=== PATIENT | female | born 1990 | race Caucasian/White ===

== ENCOUNTER 2019-10-14 08:57 | Emergency (ER) | payer MEDICAID ==
[~2019-10-14] VITALS: Ht 165.1 cm; Wt 63.6 kg
[~2019-10-14 08:57] MED LIST: CARB200T PO; CLON-527 PO; CLON-528 PO
[2019-10-14] MEDS ORDERED: haloperidol lactate 5mg/ml inj IM ONE (09:00)
[2019-10-14] MEDS ORDERED: LORazepam 2 mg/ml vial IM ONE (09:00)
[2019-10-14] MEDS ORDERED: diphenhydrAMINE 50 mg/ml inj IM ONE (09:00)
[2019-10-14 10:20] LABS: BASOPHILS % (AUTO) 0.5 % (0-1); EOSINOPHILS % (AUTO) 0.1 % (0-6); HEMATOCRIT 35.8 % (35.0-45.0); LYMPHOCYTES # (AUTO) 1.8 X10'3 (1.1-4.8); LYMPHOCYTES % (AUTO) 20.2 % (21-51); MEAN CORPUSCULAR HEMOGLOBIN 27.6 PG (27.0-31.0); MEAN CORPUSCULAR HGB CONC 33.5 g/dL (33.0-36.5); MEAN CORPUSCULAR VOLUME 82.4 FL (78-98); MONOCYTES # (AUTO) 0.9 X10'3 (0-0.9); MONOCYTES % (AUTO) 10.6 % (2-12); NEUTROPHILS % (AUTO) 68.6 % (42-75); PLATELET COUNT 205 X10'3 (140-440); RED BLOOD COUNT 4.34 X10'6 (4.20-5.60); WHITE BLOOD COUNT 8.8 X10'3 (4.5-11.0)
[2019-10-14 10:28] LABS: ALANINE AMINOTRANSFERASE 23 U/L (12-78); ALBUMIN/GLOBULIN RATIO 1.3 (1.1-1.5); ALKALINE PHOSPHATASE 67 IU/L (46-116); ANION GAP 13 (8-16); ASPARTATE AMINO TRANSFERASE 20 U/L (10-37); BILIRUBIN,TOTAL 0.6 MG/DL (0.1-1.0); BLOOD UREA NITROGEN 14 MG/DL (7-18); BUN/CREATININE RATIO 14.6 (6.6-38.0); CALCIUM 10.1 MG/DL (8.5-10.1); CHLORIDE 103 MMOL/L (99-107); CREATININE 0.96 MG/DL (0.40-0.90); GLUCOSE 102 MG/DL (70-104); POTASSIUM 3.6 MMOL/L (3.5-5.1); SODIUM 140 MMOL/L (135-145); TOTAL CARBON DIOXIDE 24.4 MMOL/L (24-32); TOTAL PROTEIN 8.8 G/DL (6.4-8.2); eGFR 70 ML/MIN
[2019-10-14 10:36] LABS: ETHANOL < 0.010 GM/DL (0.0-0.010)
[2019-10-14 12:59] LABS: URINE HCG NEGATIVE (NEG)
[2019-10-14 13:04] LABS: URINE AMPHETAMINE SCREEN NEGATIVE (Neg); URINE BARBITUATE SCREEN NEGATIVE (Neg); URINE BENZODIAZEPINES SCREEN NEGATIVE (Neg); URINE CANNABINOID SCREEN POSITIVE (Neg); URINE COCAINE SCREEN NEGATIVE (Neg); URINE METHADONE SCREEN NEGATIVE (Neg); URINE OPIATE SCREEN NEGATIVE (Neg); URINE PHENCYCLIDINE SCREEN NEGATIVE (Neg)
[2019-10-14 13:13] LABS: CLARITY,URINE CLOUDY (Clear); COLOR,URINE YELLOW (Yellow); GLUCOSE, URINE NEGATIVE (Neg); KETONES,URINE 15 mg/dl (Neg); LEUKOCYTE ESTERASE ,URINE NEGATIVE (Neg); NITRITES, URINE NEGATIVE (Neg); OCCULT BLOOD,URINE NEGATIVE (Neg); PH,URINE 5.5 (4.8-8.0); PROTEIN,URINE TRACE mg/dl (Neg); UROBILINOGEN,URINE 0.2 E.U/dL (0.2-1.0)
--- NOTE | 2019-10-14 13:19 | NUR ---
PT. GIVEN A SANDWICH. PT. TALKING TO HERSELF STATING SHE IS STARVING EVEN THOUGH SHE HAS A SANDWICH THAT IS OPEN AND JUICE.
[2019-10-14 13:20] LABS: UA COLLECTION TYPE URINAL
[2019-10-14 13:21] LABS: MUCUS STRANDS MANY /LPF (Neg); SQUAMOUS EPITHELIAL CELL,UR MANY /LPF (FEW)
[2019-10-14 13:22] LABS: BACTERIA,URINE 2+ /HPF (Neg); RBC,URINE 0-2 /HPF (0-2); WBC,URINE 0-4 /HPF (0-4)
--- NOTE | 2019-10-14 17:33 | NUR ---
PT MOVED FROM BED 15 TO BED 27 IN OVERFLOW, PT BROUGHT OVER VIA WHEELCHAIR BY BLAS TELLEZ/ELENO
--- NOTE | 2019-10-14 17:40 | NUR ---
PT UNABLE TO ANSWER QUESTIONS AT THIS TIME, PT IS NOT ABLE TO FORMULATE EVEN A SENTENCE, CALLED ESEQUIEL DYSON AT [facility] [phone] LEFT MESSAGE INFORMED PROVIDER TO CALL TO GIVE NAME AND DOSE OF MEDICATIONS SHE PRESCRIBES THE PT SO THAT WE CAN UPDATE PT MEDICATION RECORD
--- NOTE | 2019-10-14 18:37 | NUR ---
Patient awakens to voice, she looks startled. This marketing writer identified himself as an RN. The patient took my hand and held it, she then was reassured that she is in a safe place. Patient returned to sleep. Non verbal for now. Seizure pads will be placed as a precaution with three rails up.
--- NOTE | 2019-10-14 19:34 | NUR ---
Patient is sleeping on her left side. She self repositions.
[2019-10-14] MEDS ORDERED: clonazePAM 0.5mg tablet PO PRN ×2 (19:50→19:53)
--- NOTE | 2019-10-14 20:48 | NUR ---
Patient is sleeping on her left side. In direct observation from a tech sitting nearby.
--- NOTE | 2019-10-14 22:00 | NUR ---
Patient is sleeping quietly, supine in bed.
[2019-10-14] MEDS ORDERED: clonazePAM 0.5mg tablet PO ONE (23:25)
--- NOTE | 2019-10-14 23:35 | NUR ---
Patient is awake now. Minor agitation, she is eating her reheated dinner. Patient nods yes when asked about a seizure history. Patient has a tech sitting next to her bed.
--- NOTE | 2019-10-15 00:33 | NUR ---
Patient is sleeping on her left side. As a precaution patient has pads on three rails that are up. Probable seizure history. Yahaira is nom compliant on medications at this point.
--- NOTE | 2019-10-15 01:24 | NUR ---
Patient is sleeping on her left side, the bed isin a low fowlers position.
--- NOTE | 2019-10-15 02:31 | NUR ---
Patient sleeping quietly.
--- NOTE | 2019-10-15 03:45 | NUR ---
Patient remains sleeping in supine position. She repositions self in bed. Warm blankets supplied.
--- NOTE | 2019-10-15 04:52 | NUR ---
Patient is sleeping on her left side with her knees flexed.
--- NOTE | 2019-10-15 05:34 | NUR ---
Patient sat up for morning vital signs and went directly back to sleep, positioning herself on her left side in bed.
--- NOTE | 2019-10-15 06:55 | NUR ---
Patient awoke and tearful. Patient couldn't verbalized what she wanted but doesn't want to be here. RN explained where she was and what was going to happen today. Patient listened. Patient then got up slowly and went to the BR. Continue to monitor.
--- NOTE | 2019-10-15 09:10 | NUR ---
RN assisting patient in eating and drinking her juice. Patient is no speaking and eating very very slowly. Continue to monitor.
[2019-10-15] MEDS: carBAMazepine 100mg chewable tablet PO SCH ×2 (09:53→20:00)
--- NOTE | 2019-10-15 10:59 | NUR ---
Patient's boyfriend and father of patient's baby visiting patient along with the "[id number]." Boyfriend states patient stopped taking meds 1 year ago or more and was seen at [facility] and was sent from there. Boyfriend states she has Bi-polar d/o and possibly Schizophrenia. Patient was taking Tegretol but boyfriend does not know if she was on other meds. Patient calm and appears much more attentive to her family than to staff. Continue to monitor.
--- NOTE | 2019-10-15 12:58 | NUR ---
Patient acting bizarre. Patient is having a hard time formulating words. Patient sitting next to bedside table. Continue to monitor.
--- NOTE | 2019-10-15 16:13 | NUR ---
[phone], Palomo's phone number (boyfriend).
--- NOTE | 2019-10-15 16:17 | NUR ---
pt talking with boyfriend on phone
--- NOTE | 2019-10-15 16:21 | NUR ---
Patient speaking to boyfriend on the phone. Continue to monitor.
--- NOTE | 2019-10-15 18:35 | NUR ---
Assumed care of patient, pt. sitting up in bed staring at meal tray at this time. Encouraged pt. to eat dinner, she states, "I'm waiting." No s/s of distress, will continue to monitor.
--- NOTE | 2019-10-15 19:30 | NUR ---
Pt. continued to sit on edge of her bed staring at her tray, and this nurse had to set tray up and hand pt. utensils in order for her to begin eating. After feeding pt. a few bites, she did then take a few bites on her own, however she was only able to eat approximately 25-50% of the meal. Will endorse to AM shift and continue to monitor.
--- NOTE | 2019-10-15 20:30 | NUR ---
Attempted to complete 1:1 at bedside, pt. continues to present with thought blocking and requires an extended amount of time to respond to questions. She also presents with confusion and is A&O X2 (to name and place). She attempted to answer some questions by reading information off of her patient bracelet. Pt. denies S/I, H/I, and A/V/GRACE. However, pt. presents as possibly paranoid delusional and refuses to take scheduled HS medication Tegretol. When this medical underwriter questioned pt. regarding why she would not take medication she repeatedly stated, "I'm just waiting." She became tearful after talking on the phone earlier to her family and reported that she is waiting for them to come and take them home. Pt. also refuses to take PRN Clonazepam r/t anxiety. This medical underwriter continued to encourage pt. to take her medication so she can get better and be able to go home with her family, however she continued to refuse. Pt. states, "I'm tired." She is lying in bed with eyes closed at this time, no s/s of distress.
--- NOTE | 2019-10-15 22:16 | NUR ---
Received call from Juan Duffy regarding possible placement of patient. Will present to their provider and let us know.
--- NOTE | 2019-10-15 22:30 | NUR ---
Pt. appears to be sleeping at this time, laying on her rt. side, rr even and unlabored.
--- NOTE | 2019-10-16 00:30 | NUR ---
Pt. sitting up in bed at this time, nurse asked her if she needed to use the BR and she nodded "Yes" slightly. Assisted pt. to ambulate to the BR r/t generalized weakness. Pt. able to urinate, and this nurse then assisted her back to bed. Pt. laying in bed with eyes closed at this time. Will continue to monitor.
--- NOTE | 2019-10-16 02:17 | NUR ---
Pt. awake sitting up in bed staring at the wall at this time. Obtained orders from Dr. Morales for 10mg of Zyprexa and 25mg of Benadryl. Will continue to monitor.
[2019-10-16] MEDS ORDERED: diphenhydrAMINE 25mg capsule PO ONE (02:20)
[2019-10-16] MEDS ORDERED: OLANZapine 5mg rapidly disint. tablet PO ONE (02:20)
--- NOTE | 2019-10-16 02:45 | NUR ---
Pt. again refusing to take any medication even though education provided by this song writer that it will help her to sleep. She holds medication cup in her hand for a long time while verbally ageeing to take it, however will not put medication in her mouth. Pt. periodically spits in a water cup by her bed, new cup provided. Pt. encouraged by this song writer to lay down and try to sleep, she complies. Will continue to monitor.
--- NOTE | 2019-10-16 04:33 | NUR ---
Pt. asleep at this time, laying on her right side, rr even and unlabored.
--- NOTE | 2019-10-16 05:10 | NUR ---
Pt. up to use the BR, accompanied by staff r/t generalized weakness and confusion. Able to ambulate with assistance from staff back to bed. Will continue to monitor.
[2019-10-16 05:30] VITALS: BP 131/92
--- NOTE | 2019-10-16 05:55 | NUR ---
Pt. appears to be sleeping at this time, no s/s of distress. Will continue to monitor.
[2019-10-16] MEDS: carBAMazepine 100mg chewable tablet PO SCH (08:00)
--- NOTE | 2019-10-16 08:23 | NUR ---
pt setting up eating offered meds took meds in to mouth and sucked on them then spit them out and would not retake them
--- NOTE | 2019-10-16 10:01 | NUR ---
pt is awake moving around in bed making nosies come up to desk and asked to call boyfriend tried to call but no answer ambulated to bathroom once with assistance. whe she walks alone she walks with a steady gate but when assisted she will walk with a unsteady gate and will be appring like her legs are about to give out
--- NOTE | 2019-10-16 10:32 | NUR ---
Kiya from [facility] called said that she has been accepted to [facility]
--- NOTE | 2019-10-16 11:26 | NUR ---
pt is up walking around with blanket around shoulders when asked to go back to bed she starts moaning but walked back to bed
--- NOTE | 2019-10-16 11:30 | NUR ---
[facility] office called picked edge sewing machine operator time will be [id number] courier driver is nitza
--- NOTE | 2019-10-16 12:52 | NUR ---
pt left with trasport nitza to respat on [address] pt changed in to her cloths and ambulated out with secerity and all her belonings
== END 2019-10-16 12:55 ==
LOC: ER 08:57
DX: F29 Unspecified psychosis not due to a substance or known physiological condition (principal); F31.9 Bipolar disorder, unspecified; F12.90 Cannabis use, unspecified, uncomplicated; Z79.899 Other long term (current) drug therapy
CPT/HCPCS: 36415; 80053; 80156; 80305; 80320; 81001; 81025; 84443; 85025; 96372; 99285; J1200; J1630; J2060

== ENCOUNTER 2021-03-26 12:59 | Emergency (ER) | payer MEDICAID ==
[~2021-03-26] VITALS: Ht 165.1 cm; Wt 59.1 kg
--- NOTE | 2021-03-26 14:30 | NUR ---
pt washing her hand ,changed in green scrubs,will cont to monitor.
[2021-03-26 15:14] LABS: URINE AMPHETAMINE SCREEN NEGATIVE (Neg); URINE BARBITUATE SCREEN NEGATIVE (Neg); URINE BENZODIAZEPINES SCREEN NEGATIVE (Neg); URINE CANNABINOID SCREEN POSITIVE (Neg); URINE COCAINE SCREEN NEGATIVE (Neg); URINE HCG NEGATIVE (NEG); URINE METHADONE SCREEN NEGATIVE (Neg); URINE OPIATE SCREEN NEGATIVE (Neg); URINE PHENCYCLIDINE SCREEN NEGATIVE (Neg)
[2021-03-26 15:26] LABS: BASOPHILS % (AUTO) 0.3 % (0-1); EOSINOPHILS % (AUTO) 0.2 % (0-6); HEMATOCRIT 39.9 % (35.0-45.0); HEMOGLOBIN 12.8 g/dl (12.0-16.0); LYMPHOCYTES # (AUTO) 1.6 X10'3 (1.1-4.8); LYMPHOCYTES % (AUTO) 16.3 % (21-51); MEAN CORPUSCULAR HEMOGLOBIN 26.9 PG (27.0-31.0); MEAN CORPUSCULAR HGB CONC 32.2 g/dL (33.0-36.5); MEAN CORPUSCULAR VOLUME 83.6 FL (78-98); MEAN PLATELET VOLUME 8.5 FL (7.4-10.4); MONOCYTES # (AUTO) 0.6 X10'3 (0-0.9); NEUTROPHILS # (AUTO) 7.5 X10'3 (1.8-7.7); NEUTROPHILS % (AUTO) 77.2 % (42-75); PLATELET COUNT 198 X10'3 (140-440); RED BLOOD COUNT 4.77 X10'6 (4.20-5.60); RED CELL DISTRIBUTION WIDTH 16.7 % (11.5-14.5); WHITE BLOOD COUNT 9.7 X10'3 (4.5-11.0)
[2021-03-26 15:30] LABS: ALANINE AMINOTRANSFERASE 16 U/L (12-78); ALBUMIN 4.9 G/DL (3.4-5.0); ALBUMIN/GLOBULIN RATIO 1.3 (1.1-1.5); ALKALINE PHOSPHATASE 56 IU/L (46-116); ANION GAP 10 (8-16); ASPARTATE AMINO TRANSFERASE 19 U/L (10-37); BILIRUBIN,TOTAL 0.4 MG/DL (0.1-1.0); BLOOD UREA NITROGEN 9 MG/DL (7-18); BUN/CREATININE RATIO 10.2 (6.6-38.0); CALCIUM 9.3 MG/DL (8.5-10.1); CHLORIDE 102 MMOL/L (99-107); CREATININE 0.88 MG/DL (0.40-0.90); GLUCOSE 120 MG/DL (70-104); SODIUM 139 MMOL/L (135-145); TOTAL CARBON DIOXIDE 26.8 MMOL/L (24-32); TOTAL PROTEIN 8.8 G/DL (6.4-8.2); eGFR 77 ML/MIN
[2021-03-26 15:32] LABS: ETHANOL < 0.010 GM/DL (0.0-0.010)
--- NOTE | 2021-03-26 16:10 | NUR ---
pt resting in bed at this time ,will cont to monitor.
--- NOTE | 2021-03-26 17:05 | NUR ---
Pt ambulated to bed #22 from main ED. Pt was escorted by PCT. Pt was calm and has been coopertive.
[2021-03-26 18:42] VITALS: BP 135/86
== END 2021-03-26 18:47 | disposition home or self-care (01) ==
LOC: ER 12:59
DX: F41.0 Panic disorder [episodic paroxysmal anxiety] (principal); F31.9 Bipolar disorder, unspecified; F12.90 Cannabis use, unspecified, uncomplicated; Z79.899 Other long term (current) drug therapy
CPT/HCPCS: 36415; 80053; 80305; 80320; 81025; 85025; 99285